=== PATIENT | male | born 1985 ===

== ENCOUNTER 2020-04-13 02:12 | Emergency (ER) | payer OTHER ==
--- NOTE | 2020-04-13 03:25 | EDPHYS ---
Physician Documentation [facility] Name: Fabian Caraballo Age: 35 yrs Sex: Male : 1985 Arrival Date: 04/13/2020 Time: 02:16 Bed 4 Private MD: ED Physician Mayco Adam HPI: 04/13 04:30 This 35 yrs old Male presents to ER via EMS with complaints of HEAD INJURY. tw4 04:30 The patient or guardian reports injury, pain. The complaints affect the top of head. tw4 Context of injury: The problem was sustained at [facility]. Historical: - Allergies: 02:21 No Known Allergies; jb4 - Home Meds: 02:21 Unable to obtain [Active]; jb4 - PMHx: 02:21 Psych; Hypertension; jb4 - PSHx: 02:21 None; jb4 - Immunization history:: Adult Immunizations up to date. - Social history:: Smoking status: Patient denies any tobacco usage or history of. Patient/guardian denies using alcohol, street drugs. - Immunization history: Last tetanus immunization: - up to date. ROS: 06:11 Constitutional: Negative for fever, chills, and weight loss, Eyes: Negative for injury, tw4 pain, redness, and discharge, Cardiovascular: Negative for chest pain, palpitations, and edema, Respiratory: Negative for shortness of breath, cough, wheezing, and pleuritic chest pain, Abdomen/GI: Negative for abdominal pain, nausea, vomiting, diarrhea, and constipation, Back: Negative for injury and pain, MS/Extremity: Negative for injury and deformity, Skin: Negative for injury, rash, and discoloration, Neuro: Negative for headache, weakness, numbness, tingling, and seizure. Exam: 06:11 Constitutional: This is a well developed, well nourished patient who is awake, alert, tw4 and in no acute distress. 06:11 Eyes: Pupils equal round and reactive to light, extra-ocular motions intact. Lids and lashes normal. Conjunctiva and sclera are non-icteric and not injected. Cornea within normal limits. Periorbital areas with no swelling, redness, or edema. ENT: Nares patent. No nasal discharge, no septal abnormalities noted. Tympanic membranes are normal and external auditory canals are clear. Oropharynx with no redness, swelling, or masses, exudates, or evidence of obstruction, uvula midline. Mucous membranes moist. Neck: Trachea midline, no thyromegaly or masses palpated, and no cervical lymphadenopathy. Supple, full range of motion without nuchal rigidity, or vertebral point tenderness. No Meningismus. Chest/axilla: Normal chest wall appearance and motion. Nontender with no deformity. No lesions are appreciated. Cardiovascular: Regular rate and rhythm with a normal S1 and S2. No gallops, murmurs, or rubs. Normal PMI, no JVD. No pulse deficits. Respiratory: Lungs have equal breath sounds bilaterally, clear to auscultation and percussion. No rales, rhonchi or wheezes noted. No increased work of breathing, no retractions or nasal flaring. Abdomen/GI: Soft, non-tender, with normal bowel sounds. No distension or tympany. No guarding or rebound. No evidence of tenderness throughout. 06:11 Head/face: Noted is a laceration(s), 15 cm(s). Vital Signs: 02:17 BP 114 / 60; Pulse 67; Resp 16; Temp 97.6(TE); Pulse Ox 98% on R/A; Weight 113.4 kg jb4 (R); Height 6 ft. 0 in. (182.88 cm) (R); Pain 6/10; 03:00 BP 111 / 68; Pulse 68; Resp 18; Pulse Ox 98% on R/A; jb4 02:17 Body Mass Index 33.91 (113.40 kg, 182.88 cm) jb4 Moore Coma Score: 02:21 Eye Response: spontaneous(4). Verbal Response: oriented(5). Motor Response: obeys jb4 commands(6). Total: 15. 03:00 Eye Response: spontaneous(4). Verbal Response: oriented(5). Motor Response: obeys jb4 commands(6). Total: 15. Trauma Score (Adult): 02:21 Eye Response: spontaneous(1); Verbal Response: oriented(1); Motor Response: obeys jb4 commands(2); Systolic BP: > 89 mm Hg(4); Respiratory Rate: 10 to 29 per min(4); Moore Score: 15; Trauma Score: 12 03:00 Eye Response: spontaneous(1); Verbal Response: oriented(1); Motor Response: obeys jb4 commands(2); Systolic BP: > 89 mm Hg(4); Respiratory Rate: 10 to 29 per min(4); Moore Score: 15; Trauma Score: 12 Laceration: 06:11 Wound Repair of 15cm ( 5.9in ) subcutaneous laceration to top of head. Distal tw4 neuro/vascular/tendon intact. Wound prep: Moderate cleansing by nurse. Skin closed with 6 1-0 Moriah using simple sutures and sterile technique. Patient tolerated well. MDM: 03:24 Patient medically screened. tw4 06:14 Data reviewed: vital signs, nurses notes, radiologic studies, CT scan. Special tw4 discussion: I discussed with the patient/guardian in detail that at this point there is no indication for admission to the hospital. It is understood, however, that if the symptoms persist or worsen the patient needs to return immediately for re-evaluation. 04/13 02:17 Order name: CT Head C Spine tw4 Administered Medications: 03:15 Drug: Tylenol #3 (300 mg-30 mg) 1 tablet Route: PO; jb4 03:39 Follow up: Response: No adverse reaction jb4 Disposition: 04/13/20 03:24 Discharged to Home. Impression: Laceration without foreign body of scalp, Concussion with loss of consciousness of unspecified duration. - Condition is Stable. - Discharge Instructions: Concussion, Adult, Head Injury, Adult. - Prescriptions for Ibuprofen 800 mg Oral Tablet - take 1 tablet by ORAL route every 8 hours As needed take with food; 30 tablet. - Medication Reconciliation Form, Thank You Letter, Antibiotic Education, Prescription Opioid Use form. - Follow up: Private Physician; When: Upon discharge from the Emergency Department; Reason: Recheck today's complaints, Continuance of care, Re-evaluation by your physician. - Problem is new. - Symptoms have improved. Signatures: Dispatcher [employer] Reuben Burgess RN RN jb4 Mayco Adam MD MD tw4 Corrections: (The following items were deleted from the chart) 03:41 03:24 04/13/2020 03:24 Discharged to Home. Impression: Laceration without foreign body jb4 of scalp; Concussion with loss of consciousness of unspecified duration. Condition is Stable. Forms are Medication Reconciliation Form, Thank You Letter, Antibiotic Education, Prescription Opioid Use. Follow up: Private Physician; When: Upon discharge from the Emergency Department; Reason: Recheck today's complaints, Continuance of care, Re-evaluation by your physician. Problem is new. Symptoms have improved. tw4
--- NOTE | 2020-04-13 03:25 | ER ---
Nurse's Notes [facility] Name: Fabian Caraballo Age: 35 yrs Sex: Male : 1985 Arrival Date: 04/13/2020 Time: 02:16 Bed 4 Private MD: Diagnosis: Laceration without foreign body of scalp;Concussion with loss of consciousness of unspecified duration Presentation: 04/13 02:17 Chief complaint: EMS states: PT was going to the restroom when he passed out and jb4 reports waking up with guards standing over him. The guards report that he fell and hit his head on a metal beam. Pt has a laceration to his forehead. Coronavirus screen: Client denies travel out of the [place] in the last 14 days. At this time, the client does not indicate any symptoms associated with coronavirus-19. Ebola Screen: No symptoms or risks identified at this time. Initial Sepsis Screen: Does the patient meet any 2 criteria? No. Patient's initial sepsis screen is negative. Does the patient have a suspected source of infection? No. Patient's initial sepsis screen is negative. Risk Assessment: Do you want to hurt yourself or someone else? Patient reports no desire to harm self or others. Onset of symptoms was April 13, 2020. 02:17 Method Of Arrival: EMS: [facility] jb4 02:17 Acuity: ROYA 3 jb4 02:21 Care prior to arrival: Glucose check: 95. Mechanism of Injury: Fall from standing jb4 position. Trauma event details: Injury occurred in the [facility]. Trauma Activation: Alert Physician: ED Physician; Name: Kia; Notified At: 02:20; Arrived At: 02:20 Physician: General Surgeon; Name: ; Notified At: 02:20; Arrived At: Physician: Radiology; Name: Radiology; Notified At: 02:20; Arrived At: 02:20 Physician: Respiratory; Name: ; Notified At: 02:20; Arrived At: Physician: Lab; Name: ; Notified At: 02:20; Arrived At: Historical: - Allergies: 02:21 No Known Allergies; jb4 - Home Meds: 02:21 Unable to obtain [Active]; jb4 - PMHx: 02: Psych; Hypertension; jb4 - PSHx: 02:21 None; jb4 - Immunization history:: Adult Immunizations up to date. - Social history:: Smoking status: Patient denies any tobacco usage or history of. Patient/guardian denies using alcohol, street drugs. - Immunization history: Last tetanus immunization: - up to date. Screenin: Abuse screen: Denies threats or abuse. Nutritional screening: No deficits noted. jb4 Tuberculosis screening: No symptoms or risk factors identified. Fall risk At risk due to prior history of falls, Intervention for positive screen: ED Physician notified. 02:25 Fall Risk None identified. jb4 Primary Survey: 02: NO uncontrolled hemorrhage observed. A: The patient is alert. Airway: patent, No jb4 supplemental oxygen in use on arrival. Oral cavity: clear, gag reflex present. Breathing/Chest: Respiratory pattern: regular, Respiratory effort: spontaneous, unlabored, Chest inspection: symmetrical rise and fall of the chest. Circulation: Skin color: pink, Skin temperature: warm, dry. Disability Alert. Exposure/Environment: All clothing and personal items were removed. Forensic evidence collection is not deemed to be indicated at this time. Items placed in patient belonging bag. 03:30 Reassessment Airway Airway Patent Oxygen No O2 Oral cavity Clear +Gag reflex Trachea jb4 Midline Breathing/Chest Respiratory pattern Regular Respiratory effort Spontaneous Unlabored Chest inspection Symmetrical Circulation Color [place] Temperature Warm Dry Disability Alert. Secondary Survey: 02:21 HEENT: Head Other Vertical laceration noted to the top of the forehead Face No jb4 injury/deformity Eyes: No injury or deformity noted. Ears: clear Nose: clear Throat: No injury or deformity noted. is clear with gag reflex present. Gastrointestinal: No deficits noted. : No deficits noted. Musculoskeletal: No deficits noted. Assessment: 02:25 General: Appears in no apparent distress. comfortable, Behavior is calm, cooperative, jb4 appropriate for age. Pain: Complains of pain in face and neck Pain does not radiate. Pain currently is 6 out of 10 on a pain scale. Neuro: Level of Consciousness is awake, alert, obeys commands, Oriented to person, place, time, situation. Cardiovascular: Patient's skin is warm and dry. Respiratory: Airway is patent Respiratory effort is even, unlabored, Respiratory pattern is regular, symmetrical. GI: No signs and/or symptoms were reported involving the gastrointestinal system. : No signs and/or symptoms were reported regarding the genitourinary system. EENT: No signs and/or symptoms were reported regarding the EENT system. Derm: Skin is intact, Skin is pink, warm \T\ dry. Musculoskeletal: Circulation, motion, and sensation intact. Range of motion: intact in all extremities. 02:58 Reassessment: Patient appears in no apparent distress at this time. Patient and/or jb4 family updated on plan of care and expected duration. Pain level reassessed. Patient is alert, oriented x 3, equal unlabored respirations, skin warm/dry/pink. 03:39 Reassessment: Patient appears in no apparent distress at this time. Patient and/or jb4 family updated on plan of care and expected duration. Pain level reassessed. Patient is alert, oriented x 3, equal unlabored respirations, skin warm/dry/pink. 03:39 Reassessment: Authorization code from [facility] # [id number]. bb Vital Signs: 02:17 BP 114 / 60; Pulse 67; Resp 16; Temp 97.6(TE); Pulse Ox 98% on R/A; Weight 113.4 kg jb4 (R); Height 6 ft. 0 in. (182.88 cm) (R); Pain 6/10; 03:00 BP 111 / 68; Pulse 68; Resp 18; Pulse Ox 98% on R/A; jb4 02:17 Body Mass Index 33.91 (113.40 kg, 182.88 cm) jb4 Daysi Coma Score: 02:21 Eye Response: spontaneous(4). Verbal Response: oriented(5). Motor Response: obeys jb4 commands(6). Total: 15. 03:00 Eye Response: spontaneous(4). Verbal Response: oriented(5). Motor Response: obeys jb4 commands(6). Total: 15. Trauma Score (Adult): 02:21 Eye Response: spontaneous(1); Verbal Response: oriented(1); Motor Response: obeys jb4 commands(2); Systolic BP: > 89 mm Hg(4); Respiratory Rate: 10 to 29 per min(4); [place] Score: 15; Trauma Score: 12 03:00 Eye Response: spontaneous(1); Verbal Response: oriented(1); Motor Response: obeys jb4 commands(2); Systolic BP: > 89 mm Hg(4); Respiratory Rate: 10 to 29 per min(4); Daysi Score: 15; Trauma Score: 12 ED Course: 02:16 Patient arrived in ED. tw4 02:16 Mayco Adam MD is Attending Physician. tw4 02:16 Reuben Nolen, RN is Primary Nurse. jb4 02:19 Triage completed. jb4 02:21 Arm band placed on right wrist. jb4 02:21 Patient has correct armband on for positive identification. Bed in low position. Call jb4 light in reach. Side rails up X 1. 02:21 Patient maintains SpO2 saturation greater than 95% on room air. Thermoregulation: warm jb4 blanket given to patient. 02:48 CT Head C Spine In Process Unspecified. EDMS 03:10 Assist provider with laceration repair on top of head that was between 2.6 to 7.5 cm jb4 using bharati. Set up tray. Performed by Mayco Adam MD Patient tolerated well. 03:40 Patient did not have IV access during this emergency room visit. jb4 Administered Medications: 03:15 Drug: Tylenol #3 (300 mg-30 mg) 1 tablet Route: PO; jb4 03:39 Follow up: Response: No adverse reaction jb4 Intake: 03:41 PO: 0ml; Total: 0ml. jb4 Output: 03:41 Urine: 0ml; Total: 0ml. jb4 Outcome: 03:24 Discharge ordered by . tw4 03:40 Discharged to Law Enforcement jb4 03:40 Condition: stable 03:40 Discharge instructions given to patient, police, Instructed on discharge instructions, follow up and referral plans. medication usage, Demonstrated understanding of instructions, follow-up care, medications, Prescriptions given X 1. 03:41 Patient's length of stay was not longer than 2 hours. jb4 03:41 Patient left the ED. jb4 Signatures: Dispatcher [employer] EDRupinder Elias RN RN bb Bryson, James, RN RN jb4 Mayco Adam MD MD tw4
[2020-04-13] MEDS ORDERED: CODEINE 30MG/APAP 300MG TAB ONE (03:36)
[2020-04-13 03:48] VITALS: TEMP 97.6; O2SAT 98
[2020-04-13 03:49] VITALS: BP 111/68
--- NOTE | 2020-04-13 11:10 | RAD REPORT ---
EXAM DESCRIPTION: CT - Head C Spine Mpr Wo Con - 04/13/2020 6:54 am CLINICAL HISTORY: The patient is 35 years old and is Male; HEAD INJURY SYNCOPE;Pain;Smash injury TECHNIQUE: Axial computed tomography images of the head/brain and cervical spine without intravenous contrast. Sagittal and coronal reformatted images were created and reviewed. This CT exam was pe rformed using one or more of the following dose reduction techniques: automated exposure control, a djustment of the mA and/or kV according to patient size, and/or use of iterative reconstruction techn ique. COMPARISON: No relevant prior studies available. FINDINGS: BRAIN: Unremarkable. No hemorrhage. No significant white matter disease. No edema. VENTRICLES: Unremarkable. No ventriculomegaly. SKULL: No acute fracture. SINUSES: Unremarkable as visualized. No acute sinusitis. MASTOID AIR CELLS: Unremarkable as visualized. No mastoid effusion. VERTEBRAE: The vertebral body heights and alignment are maintained. No acute fracture. DISCS/SPINAL CANAL/NEURAL FORAMINA: Minimal intervertebral disc space narrowing at C5-C6 with po sterior disc osteophyte complexes. The remaining intervertebral disc spaces are maintained. There is no significant canal stenosis or neural foraminal narrowing. SOFT TISSUES: The soft tissues are normal. LUNG APICES: Unremarkable as visualized. IMPRESSION: 1. No acute intracranial findings. 2. No fracture or malalignment of the cervical spine. Electronically signed by: Priyanka Gupta MD 04/13/2020 2:58 AM PREVENTIVE MEDICINE OFFICER Due to temporary technical issues with the PACS/Fluency reporting system, reports are being signed by the in house radiologist without review as a courtesy to ensure prompt reporting. The interpreting r adiologist is fully responsible for the content of the report.
== END 2020-04-13 03:41 | disposition home or self-care (01) ==
LOC: ER 02:12
PROC: 0HQ0XZZ Repair Scalp Skin, External Approach (ICD-10-PCS; principal; 2020-04-13)
DX: S01.01XA Laceration without foreign body of scalp, initial encounter (principal); S06.0X9A Concussion with loss of consciousness of unspecified duration, initial encounter; R40.2422 Glasgow coma scale score 9-12, at arrival to emergency department; I10 Essential (primary) hypertension; X58.XXXA Exposure to other specified factors, initial encounter; Y92.149 Unspecified place in prison as the place of occurrence of the external cause
CPT/HCPCS: 70450; 72125; 99284; G0390